=== PATIENT | male | born 1965 | race Caucasian/White ===

== ENCOUNTER 2021-10-04 07:52 | Outpatient (CLI) | payer OTHER, SELFPAY ==
--- NOTE | ~2021-10-04 | CT_ITS ---
EXAMINATION: CT abdomen pelvis wo/w con DATE: 10/04/2021 08:30 INDICATION: Gross hematuria. TECHNIQUE: Computed tomography (CT) of the abdomen and pelvis was performed without and with intraven ous contrast using a total of 130 mL Omnipaque-350 intravenous contrast with a double-bolus technique for simultaneous opacification of the renal parenchyma and renal collecting system. Automated exposu re control and iterative reconstruction technique were employed. The dose-length product was 860.81 m Gy-cm. COMPARISON: None FINDINGS: The visualized portions of the lung bases demonstrate mild atelectasis. A calcified right middle lobe nodule and calcified hilar and mediastinal lymph nodes are consistent with old granulomatous disease . No pleural effusion. The heart size is normal. There are coronary artery calcifications. No pericar dial effusion. There is mild bilateral gynecomastia. The liver, gallbladder, spleen, pancreas, adrena l glands, and kidneys are normal. There is no urolithiasis. The ureters are well opacified and are no rmal. The bladder is normal. The prostate is mildly enlarged. Stool distends the rectum. There are no dilated loops of bowel. The appendix is normal. There are no pathologically enlarged lymph nodes. Th ere is no free intraperitoneal fluid. There is moderate thoracolumbar spondylosis. There is a mild ch ronic height loss of multiple vertebral bodies. IMPRESSION: 1. No etiology for hematuria. Reviewed, dictated and finalized at location A.
[2021-10-04 08:16] LABS: Estimated Glomerular Filt Rate > 60
== END 2021-10-04 07:53 | disposition home or self-care (01) ==
PROVIDERS: Visit Provider Urology
DX: R31.0 Gross hematuria (principal); N62 Hypertrophy of breast; N40.0 Benign prostatic hyperplasia without lower urinary tract symptoms; M47.815 Spondylosis without myelopathy or radiculopathy, thoracolumbar region
CPT/HCPCS: 74178; Q9967

== ENCOUNTER 2021-10-11 00:14 | Day surgery (SDC) | payer OTHER, SELFPAY ==
[2021-10-04 08:57] VITALS: BMI 27.8
[2021-10-11 09:08] VITALS: BP 138/86; PULSE 87; RESP 18; TEMP 36.4; O2SAT 100; BMI 27.6
[2021-10-11] MEDS: LACTATED RINGERS 1,000 ML 150 ML IV CONT (09:32)
--- NOTE | 2021-10-11 09:40 | WPDANESEPPF ---
Anes - Initial Pre Proc Eval Procedure: Operation Date: 10/11/21 10:30 Proposed Procedures p Screening Colonoscopy - Petey Perez MD Date/Time: 10/11/21 09:40 Surgeon: Petey Perez MD Pre Op Diagnosis: neoplasm screening Patient Data Age: 55 Gender: M Height: 1.68 m Weight: 77.8 kg Last Vital Signs Temp 36.4 C 10/11/21 09:08 Pulse 87 10/11/21 09:08 Resp 18 10/11/21 09:08 BP 138/86 10/11/21 09:08 Pulse Ox 100 10/11/21 09:08 Allergies Allergy/AdvReac Type Severity Reaction Status Date / Time No Known Allergies Allergy Verified 10/11/21 09:15 Home Medications Medication Instructions Recorded Confirmed Type allopurinol [Zyloprim] 100 mg PO PRN 10/04/21 10/11/21 History amlodipine [Norvasc] 5 mg PO DAILY 10/04/21 10/11/21 History lisinopril [Zestril] 40 mg PO DAILY 10/04/21 10/11/21 History trazodone 50 mg PO HS 10/04/21 10/11/21 History zolpidem [Ambien] 10 mg PO HS 10/04/21 10/11/21 History Patient hx anesthesia problems: none Family hx anesthesia problems: none Results Review: All pre-operative results and documents have been reviewed as part of the pre-operative evaluation. [facility] Past Medical History Medical History Hx of migraines Hypertension Family History Family History Mother Carcinoma of colon Social History Social History Smoking status: Current every day smoker Tobacco type: smokeless tobacco Alcohol intake: current Drinks per week: 7 Substance use: unknown Substance use type: does not use Living arrangements: with family Spiritual care concerns: No Anes - Eval Final PreProcedure Day of Procedure 10/11/21 09:40 Patient weight: overweight Heart: regular rate and rhythm Lungs: clear to auscultation Airway: Mallampati scale class II Neurological: alert and oriented Last oral intake: >/= 8 hours ASA classification: II Emergent: no Anesthetic plan: proceed Anesthesia type and monitoring: general GIVS and standard monitoring Results Review: All pre-operative results and documents have been reviewed as part of the pre-operative evaluation. Informed Consent: The patient's anesthetic plan and its attendant risks and benefits were discussed with the patient/family/POA. Questions were solicited and answers provided to the satisfaction of the patient/family/POA.
--- NOTE | 2021-10-11 10:35 | PM.HPGS ---
History of Present Illness History of Present Illness Consent: Risks, benefits, and alternatives have been discussed and questions answered. Patient agrees to proceed with procedure. Chief complaint: neoplasm screening Narrative: Shadi Ellis is a 55 year old male here for colonoscopy, mother with colon cancer. He had a colonoscopy in 1991 because colitis Review of Systems Constitutional: Constitutional: Denies headache(s) and Denies weakness Eyes: Eyes: Denies blurry vision ENT: Reports Normal hearing present, Denies headache(s) and Denies neck pain Cardiovascular: Cardiovascular: Denies chest pain and Denies dyspnea Respiratory: Respiratory: Denies dyspnea Gastrointestinal: Gastrointestinal: Reports no additional gastrointestinal complaints Genitourinary: Genitourinary: Denies dysuria Musculoskeletal: Musculoskeletal: Denies neck pain Integumentary/Breasts: Skin/Breast: Denies dry skin Neurologic: Reports Normal hearing present, Denies headache(s) and Denies weakness Psychiatric: Psychiatric: Denies anxiety Endocrine: Endocrine: Denies change in body appearance Hematologic/Lymphatic: Hematologic/Lymphatic: Denies easy bleeding Allergic/Immunologic: Allergic/Immunologic: Denies urticaria [facility] Past Medical History Medical History (Updated 10/11/21 @ 10:36 by Petey Perez MD) Family history of colon cancer in mother Hx of migraines Hypertension Family History Family History Mother Carcinoma of colon Social History Social History Smoking status: Current every day smoker Tobacco type: smokeless tobacco Alcohol intake: current Drinks per week: 7 Substance use: unknown Substance use type: does not use Living arrangements: with family Spiritual care concerns: No Meds Home Medications and Allergies Home Medications Medication Instructions Recorded Confirmed Type allopurinol [Zyloprim] 100 mg PO PRN 10/04/21 10/11/21 History amlodipine [Norvasc] 5 mg PO DAILY 10/04/21 10/11/21 History lisinopril [Zestril] 40 mg PO DAILY 10/04/21 10/11/21 History trazodone 50 mg PO HS 10/04/21 10/11/21 History zolpidem [Ambien] 10 mg PO HS 10/04/21 10/11/21 History Allergies Allergy/AdvReac Type Severity Reaction Status Date / Time No Known Allergies Allergy Verified 10/11/21 09:15 Vital Signs Vital Signs - 24 hr 10/11/21 09:08 Temperature 97.6 F Pulse Rate 87 Respiratory Rate 18 Blood Pressure 138/86 Pulse Oximetry 100 Exam Const: General: comfortable and no acute distress HENMT: General nose exam: Normal nares present Eyes: General: appearance normal, both eyes and all related structures Neck: Neck: no JVD Resp: Auscultation: clear to auscultation bilaterally Cardio: Rate: regular rate Rhythm: regular rhythm GI: Inspection: non-distended GI Palp: Yes Soft to palpation Skin: General skin exam: normal color Neuro: General: gait normal Speech: normal speech Extrem: General: normal to inspection Psych: Mental Status: mental status grossly normal Assessment and Plan Assessment and plan (1) Family history of colon cancer in mother: Code(s): Z80.0 - Family history of malignant neoplasm of digestive organs Status: Acute Assessment and Plan: colonoscopy
[2021-10-11 11:06] VITALS: BP 107/75; PULSE 75; RESP 18; O2SAT 98
[2021-10-11 11:16] VITALS: BP 119/83; PULSE 70; RESP 21; O2SAT 100
[2021-10-11 11:26] VITALS: BP 116/82; PULSE 65; RESP 17; O2SAT 100
== END 2021-10-11 11:38 | disposition home or self-care (01) ==
PROVIDERS: PCP Family Medicine; Visit Provider Internal Medicine Gastroenterology
PROC: 0DJD8ZZ Inspection of Lower Intestinal Tract, Via Natural or Artificial Opening Endoscopic (ICD-10-PCS; CPT 45378; principal; 2021-10-11 10:30)
DX: Z12.11 Encounter for screening for malignant neoplasm of colon (principal); D12.0 Benign neoplasm of cecum; D12.3 Benign neoplasm of transverse colon; Z80.0 Family history of malignant neoplasm of digestive organs; K57.30 Diverticulosis of large intestine without perforation or abscess without bleeding; K64.8 Other hemorrhoids; I10 Essential (primary) hypertension; Z87.891 Personal history of nicotine dependence; Z87.19 Personal history of other diseases of the digestive system
CPT/HCPCS: 45385; 88305; J2704; J7120

== ENCOUNTER 2021-10-16 19:16 | Emergency (ER) | payer OTHER, SELFPAY ==
[2021-10-16] VITALS (14 sets, daily range): BP systolic 125–171; BP diastolic 74–90; PULSE 65–92; RESP 12–22; O2SAT 97–100
--- NOTE | ~2021-10-16 | XR_ITS ---
EXAMINATION: XR chest 2V EXAM DATE: 10/16/2021 20:23 INDICATION: Chest pain. TECHNIQUE: Frontal and lateral projections of the chest obtained and reviewed. There is no prior jose dy for comparison. FINDINGS: The lungs are clear. There are no pleural effusions. The cardiomediastinal silhouette is within normal limits. There is no pneumothorax suspected. The bones and soft tissues are unremarkab le. IMPRESSION: Normal chest x-ray exam. Reviewed, dictated and finalized at location G. IMPRESSION: Normal chest x-ray exam.
--- NOTE | 2021-10-16 19:22 | ECG_ITS ---
Measurements Intervals [place] Rate: 82 P: 32 WI: 156 QRS: -10 QRSD: 102 T: 29 QT: 361 QTc: 424 Interpretive Statements SINUS RHYTHM MINOR RV CONDUCTION ABNORMALITY OTHERWISE UNREMARKABLE ECG NO PREVIOUS ECG AVAILABLE FOR COMPARISON Electronically Signed On 10-16-2021 20:55:15 CDT by Dayton Bcuhanan M.D.
[2021-10-16 20:02] LABS: Basophils Percent Auto 0.7 % (0.2-1.2); Eosinophils Absolute Auto 0.2 K/mm3 (0-0.3); Eosinophils Percent Auto 3.6 % (0-4.4); Hemoglobin 15.7 g/dL (14.0-18.0); Immature Granulocyte Absolute 0.04 K/mm3 (0.00-0.031); Immature Granulocyte Percent A 0.7 % (0-0.5); Lymphocytes Absolute Auto 1.56 K/mm3 (0.9-3.2); Lymphocytes Percent Auto 25.6 % (18.3-44.2); Mean Corpuscular HGB Conc 34.9 g/dl (32-36); Mean Corpuscular Volume 85.9 fl (80-100); Mean Platelet Volume 10.4 fl (7.4-10.4); Monocytes Absolute Auto 0.5 K/mm3 (0.1-0.6); Monocytes Percent Auto 8.7 % (2.6-8.5); Neutrophils Absolute Auto 3.7 K/mm3 (1.3-6.7); Neutrophils Percent Auto 60.7 % (45.5-73.1); Platelet Count Result 211 k/mm3 (150-375); Red Blood Count 5.24 M/mm3 (4.6-6.20); Red Cell Distribution Width 13.1 % (11.5-14.5); White Blood Count 6.1 K/mm3 (4.5-10.0)
--- NOTE | 2021-10-16 20:03 | ED.GENADULT ---
HPI - General Adult General Chief complaint: Chest Pain Stated complaint: chest pain Time Seen by Provider: 10/16/21 19:56 History of Present Illness HPI narrative: Patient is a 55-year-old gentleman who presents the emergency department with chief complaint of chest discomfort and palpitations. The patient reports that for the last week he has had little bit of discomfort in the left side of his chest is been intermittent. Patient states currently the pain is gone but does report that his primary reason for coming the emergency department is because has been having palpitations. Patient states that every so often is a feels as though his heart skips a beat. Patient reports has not had a stress test done had a cardiac cath. The patient reports he does have history of hypertension and takes 2 antihypertensive medications. Related Data Home Medications Medication Instructions Recorded Confirmed allopurinol [Zyloprim] 100 mg PO PRN 10/04/21 10/11/21 amlodipine [Norvasc] 5 mg PO DAILY 10/04/21 10/11/21 lisinopril [Zestril] 40 mg PO DAILY 10/04/21 10/11/21 trazodone 50 mg PO HS 10/04/21 10/11/21 zolpidem [Ambien] 10 mg PO HS 10/04/21 10/11/21 Allergies Allergy/AdvReac Type Severity Reaction Status Date / Time No Known Allergies Allergy Verified 10/11/21 09:15 Review of Systems Review of Systems: A 10 system review of systems was completed on the patient and is negative except for what is stated in the HPI. Nursing and ancillary documentation was reviewed. PMFSH Past Medical History Medical History Family history of colon cancer in mother Hx of migraines Hypertension Family History Family History Mother Carcinoma of colon Social History Social History Smoking status: Current every day smoker Tobacco type: smokeless tobacco Alcohol intake: current Drinks per week: 7 Substance use: unknown Substance use type: does not use Spiritual care concerns: No Exam Narrative: GENERAL: Well-appearing, well-nourished, and in no acute distress. HEAD: Normocephalic, atraumatic. EYES: PERRLA and EOMI. ENT: Nares clear, no rhinorrhea or epistaxis. Mucous membranes moist. NECK: Supple. CHEST: Clear to auscultation. No respiratory distress. HEART: Regular rate and rhythm. No murmur heard. Normal peripheral pulses. ABDOMEN: Soft, nontender, nondistended, normal active bowel sounds. EXTREMITIES: Normal range of motion. No edema. SKIN: Warm, dry, no rash. NEURO: No focal deficits. Alert and oriented x3. PSYCH: Normal mood and affect. Course Course Emergency Course: EKG is sinus rhythm with a rate of [address] elevation or ST depression noted. Rhythm strip shows occasional PVCs Vital Signs Vital signs: Vital Signs Pulse Rate 87 10/16/21 19:27 Respiratory Rate 16 10/16/21 19:27 Blood Pressure 171/85 H 10/16/21 19:27 Pulse Oximetry 100 10/16/21 19:27 Pulse Rate 87 10/16/21 19:27 Respiratory Rate 16 10/16/21 19:27 Blood Pressure 171/85 H 10/16/21 19:27 Pulse Oximetry 100 10/16/21 19:27 Medical Decision Making MDM Narrative Medical decision making narrative: The patient's electrolytes are within normal limits. EKG shows no acute ischemic changes. The patient was observed to have occasional PVCs in the ER. Patient will be referred to his primary care physician for follow-up Vital Signs Vital Signs: Vital Signs Pulse Rate 87 10/16/21 19:27 Respiratory Rate 16 10/16/21 19:27 Blood Pressure 171/85 H 10/16/21 19:27 Pulse Oximetry 100 10/16/21 19:27 Pulse Rate 87 10/16/21 19:27 Respiratory Rate 16 10/16/21 19:27 Blood Pressure 171/85 H 10/16/21 19:27 Pulse Oximetry 100 10/16/21 19:27 Lab Data Result diagrams: 10/16/21 19:48 10/16/21 19:48
[2021-10-16] MEDS: ASPIRIN 81 MG CHEWABLE TABLET 324 MG PO (20:08)
[2021-10-16 20:12] LABS: Prothrombin Time 12.9 Seconds (11.1-14.7)
[2021-10-16 20:13] LABS: Partial Thromboplastin Time 28.2 SECONDS (22.3-36.8)
[2021-10-16 20:14] LABS: Alanine Aminotransferase 18 U/L (4-50); Albumin Level 4.7 g/dL (3.5-5.1); Alkaline Phosphatase 100 U/L (38-126); Anion Gap 9 mmol/L (8-16); Aspartate Amino Transferase 26 U/L (17-59); Bilirubin,Total 0.4 mg/dL (0.2-1.3); Blood Urea Nitrogen 14 mg/dL (9-20); Carbon Dioxide 29 mmol/L (22-30); Chloride 104 mmol/L (98-107); Estimated CRCL calculation 73 ml/min; Estimated Glomerular Filt Rate > 60; Glucose 134 mg/dL (65-110); Lipase 148 U/L (23-300); Potassium 4.1 mmol/L (3.4-5.0); Sodium 142 mmol/L (137-145)
[2021-10-16 20:15] LABS: Magnesium 2.1 mg/dL (1.6-2.3)
[2021-10-16 20:25] LABS: Troponin I < 0.012 ng/mL (0.000-0.034)
== END 2021-10-16 21:33 | disposition home or self-care (01) ==
LOC: ANHED 21:13
PROVIDERS: Emergency Provider Emergency Medicine; PCP Family Medicine
DX: I49.3 Ventricular premature depolarization (principal); R07.89 Other chest pain; I10 Essential (primary) hypertension; F17.220 Nicotine dependence, chewing tobacco, uncomplicated
CPT/HCPCS: 36415; 71046; 80053; 83690; 83735; 84484; 85025; 85610; 85730; 93005; 99284; A9270

== ENCOUNTER 2022-05-19 10:31 | Outpatient (CLI) | payer OTHER, SELFPAY ==
--- NOTE | ~2022-05-19 | US_ITS ---
EXAMINATION: US soft tissue head and neck DATE: 05/19/2022 11:07 INDICATION: Neck pain. TECHNIQUE: Multiple grayscale and Doppler ultrasound images of the neck were obtained. COMPARISON: None FINDINGS: The thyroid is normal. There is no abnormal mass or lymphadenopathy. IMPRESSION: 1. No abnormal mass or lymphadenopathy. Reviewed, dictated and finalized at location A.
== END 2022-05-19 10:32 | disposition home or self-care (01) ==
PROVIDERS: PCP Family Medicine; Visit Provider Nurse Practitioner Family
DX: R07.0 Pain in throat (principal)
CPT/HCPCS: 76536

== ENCOUNTER 2022-09-11 09:53 | Emergency (ER) | payer OTHER, SELFPAY ==
[2022-09-11] VITALS (17 sets, daily range): BP systolic 103–133; BP diastolic 74–90; PULSE 63–88; RESP 14–18; TEMP 36.4–36.8; O2SAT 95–100
--- NOTE | ~2022-09-11 | XR_ITS ---
EXAMINATION: XR chest 2V 09/11/2022 10:09 INDICATION: Left-sided chest and shoulder pain PROCEDURE: 2 views chest COMPARISON: 10/16/2021 FINDINGS: The lungs are clear. The cardiomediastinal silhouette is within normal limits. There are no pleural effusions. There is no pneumothorax suspected. IMPRESSION: 1: NO ACUTE CARDIOPULMONARY DISEASE. Reviewed, dictated and finalized at location B. [employer]ING [employer]
--- NOTE | 2022-09-11 09:55 | ECG_ITS ---
Measurements Intervals [place] Rate: 80 P: 44 FL: 168 QRS: -10 QRSD: 88 T: 29 QT: 350 QTc: 406 Interpretive Statements SINUS RHYTHM POSSIBLE RIGHT VENTRICULAR CONDUCTION DELAY [RSR (QR) IN V1/V2] OTHERWISE UNREMARKABLE ECG COMPARED TO ECG 10/16/2021 19:39:40 NO SIGNIFICANT CHANGES Electronically Signed On 09-11-2022 12:49:58 ESCALATOR ATTENDANT by Dayton Buchanan M.D.
[2022-09-11 10:45] LABS: Basophils Percent Auto 0.7 % (0.2-1.2); Eosinophils Absolute Auto 0.2 K/mm3 (0-0.3); Eosinophils Percent Auto 4.4 % (0-4.4); Hematocrit 45.7 % (42.0-52.0); Hemoglobin 15.8 g/dL (14.0-18.0); Immature Granulocyte Absolute 0.01 K/mm3 (0.00-0.031); Immature Granulocyte Percent A 0.2 % (0-0.5); Lymphocytes Absolute Auto 1.15 K/mm3 (0.9-3.2); Lymphocytes Percent Auto 21.1 % (18.3-44.2); Mean Corpuscular HGB Conc 34.6 g/dl (32-36); Mean Corpuscular Hemoglobin 29.3 pg (26-34); Mean Corpuscular Volume 84.8 fl (80-100); Mean Platelet Volume 9.8 fl (7.4-10.4); Monocytes Absolute Auto 0.5 K/mm3 (0.1-0.6); Monocytes Percent Auto 8.3 % (2.6-8.5); Neutrophils Absolute Auto 3.6 K/mm3 (1.3-6.7); Neutrophils Percent Auto 65.3 % (45.5-73.1); Platelet Count Result 189 k/mm3 (150-375); Red Blood Count 5.39 M/mm3 (4.6-6.20); Red Cell Distribution Width 12.8 % (11.5-14.5); White Blood Count 5.4 K/mm3 (4.5-10.0)
[2022-09-11 10:56] LABS: Alanine Aminotransferase 22 U/L (6-50); Albumin Level 4.7 g/dL (3.5-5.1); Alkaline Phosphatase 95 U/L (38-126); Anion Gap 6 mmol/L (8-16); Aspartate Amino Transferase 23 U/L (17-59); Bilirubin,Total 0.7 mg/dL (0.2-1.3); Blood Urea Nitrogen 13 mg/dL (9-20); Calcium 8.8 mg/dL (8.4-10.2); Carbon Dioxide 27 mmol/L (22-30); Chloride 103 mmol/L (98-107); Estimated CRCL calculation 66 ml/min; Estimated Glomerular Filt Rate > 60; Glucose 127 mg/dL (65-110); Lipase 130 U/L (23-300); Partial Thromboplastin Time 29.9 SECONDS (22.3-36.8); Potassium 4.2 mmol/L (3.4-5.0); Sodium 136 mmol/L (137-145)
[2022-09-11 11:08] LABS: Troponin I < 0.012 ng/mL (0.000-0.034)
[2022-09-11 15:26] LABS: Troponin I < 0.012 ng/mL (0.000-0.034)
[2022-09-11 17:44] LABS: Troponin I < 0.012 ng/mL (0.000-0.034)
--- NOTE | 2022-09-11 17:45 | ED.CHESTPAIN ---
HPI - Chest Pain General Chief Complaint: Chest Pain Stated Complaint: left chest pain and shoulder pain Time Seen by Provider: 09/11/22 16:11 History of Present Illness HPI narrative: Patient is a healthy 56-year-old male who presents ER with left-sided chest pain. Aching and in the upper part of his chest near the clavicle. He has begun to migrate and cause pain in his mid left back and left lateral chest wall. Reports its worse with movements and sometimes with exertion. No runny nose or sore throat or productive cough. No dyspnea with exertion. No diaphoresis. He also reports he started having some aching in his lower extremities with some chronic edema that is improved with compression socks. He has not contacted his PCP. Reports current chills. Left-sided constant over the last couple days. He has tried anti-inflammatories which intermittently helped. No history of heart disease. It appiah been many years since his last stress test. Related Data Home Medications Medication Instructions Recorded Confirmed allopurinol 100 mg tablet 100 mg PO PRN 10/04/21 10/11/21 (Zyloprim) amlodipine 5 mg tablet (Norvasc) 5 mg PO DAILY 10/04/21 10/11/21 lisinopril 40 mg tablet (Zestril) 40 mg PO DAILY 10/04/21 10/11/21 trazodone 50 mg tablet 50 mg PO HS 10/04/21 10/11/21 zolpidem 10 mg tablet (Ambien) 10 mg PO HS 10/04/21 10/11/21 Allergies Allergy/AdvReac Type Severity Reaction Status Date / Time No Known Allergies Allergy Verified 09/11/22 15:02 Review of Systems Review of Systems: All systems reviewed & are unremarkable except as noted in HPI and below Constitutional: Constitutional: Denies chills, Denies fatigue and Denies fever(s) ENT: Denies nasal congestion and Denies sore throat Cardiovascular: Cardiovascular: Reports chest pain, Denies rapid heart rate and Denies radiating jaw, neck or arm pain Respiratory: Respiratory: Denies cough and Denies dyspnea Gastrointestinal: Gastrointestinal: Denies abdominal pain, Denies nausea and Denies vomiting Musculoskeletal: Musculoskeletal: Denies myalgias, Denies arthralgias and Denies joint swelling PMFSH Past Medical History Medical History Family history of colon cancer in mother Hx of migraines Hypertension Family History Family History Mother Carcinoma of colon Social History Social History Smoking status: Current every day smoker Tobacco type: smokeless tobacco Alcohol intake: current Drinks per week: 7 Substance use: unknown Substance use type: does not use Living arrangements: with family Spiritual care concerns: No Exam Narrative: GENERAL: Well-appearing, well-nourished, and in no acute distress. HEAD: Normocephalic, atraumatic. ENT: Mucous membranes moist. CHEST: Clear to auscultation. No respiratory distress. HEART: Regular rate and rhythm. Normal peripheral pulses. ABDOMEN: Soft, nontender, nondistende. EXTREMITIES: Normal range of motion. 1+ edema. Negative Homans' sign. Normal dorsalis pedis and posterior tibial pulses bilateral lower extremities. SKIN: Warm, dry, no rash. Eczema left ang. NEURO: Alert and oriented x3. PSYCH: Normal mood and affect. Course Course Emergency Course: Patient resting comfortably. Chest pain is very atypical. Heart score is 3 patient is amenable discharge with close follow-up with his PCP. Discussed return precautions and patient verbalized understanding. Vital Signs Vital signs: Vital Signs Temperature 98.2 F 09/11/22 10:32 Pulse Rate 88 09/11/22 10:32 Respiratory Rate 14 09/11/22 10:32 Blood Pressure 125/86 09/11/22 10:32 Pulse Oximetry 98 09/11/22 10:32 Temperature 97.5 F L 09/11/22 14:52 Pulse Rate 81 09/11/22 18:14 Respiratory Rate 18 09/11/22 18:14 Blood Pressure
== END 2022-09-11 18:19 | disposition home or self-care (01) ==
PROVIDERS: Emergency Provider Emergency Medicine; PCP Family Medicine
DX: R94.31 Abnormal electrocardiogram [ECG] [EKG] (principal); F17.220 Nicotine dependence, chewing tobacco, uncomplicated
CPT/HCPCS: 36415; 71046; 80053; 83690; 84484; 85025; 85610; 85730; 93005; 99284

== ENCOUNTER → 2022-10-24 16:57 | Outpatient (CLI) | payer OTHER, SELFPAY ==
--- NOTE | ~2022-10-24 | XR_ITS ---
EXAMINATION: XR lumbar spine 2-3V DATE: 10/24/2022 17:34 INDICATION: Low back pain TECHNIQUE: Anteroposterior and lateral views of the lumbar spine, and cone-down lateral view of the l umbosacral junction were obtained. COMPARISON: None. FINDINGS: There is moderate loss of intervertebral disc space height at L4-5 and L5-S1. There are 3 m m of retrolisthesis of L4 on L5. The lumbar vertebral body heights are normal. There is mild anterior vertebral body wedging in the lower thoracic spine, likely physiologic. There is multilevel mild fac et joint osteoarthritis of the lumbar spine. Small degenerative osteophytes project from the anterior endplates of multiple vertebral bodies. A large volume of colonic stool is present. IMPRESSION: 1. Mild to moderate lumbar spondylosis without acute findings. Reviewed, dictated and finalized at location B.
== END ==
PROVIDERS: PCP Nurse Practitioner Family; Visit Provider Nurse Practitioner Family
DX: M47.816 Spondylosis without myelopathy or radiculopathy, lumbar region (principal); M54.41 Lumbago with sciatica, right side
CPT/HCPCS: 72100

== ENCOUNTER 2025-01-05 16:14 | Outpatient (CLI) | payer OTHER, SELFPAY ==
--- NOTE | ~2025-01-05 | XR_ITS ---
EXAMINATION: XR elbow RT min 3V, XR wrist RT min 3V, XR forearm RT 2V DATE: 01/05/2025 16:34 INDICATION: Right wrist pain TECHNIQUE: 1. Anteroposterior, two oblique and lateral views of the right elbow were obtained. 2. Anteroposterior and lateral views of the right forearm were obtained. 3. Dorsal palmar, lateral, oblique and ulnar deviation views of the right wrist were obtained. COMPARISON: None. FINDINGS: Alignment is normal from the right elbow through the wrist and visualized hand. No acute fracture. Ol d healed intra-articular fracture at the right radial head with mild incongruity of the articular cor teodoro of the radial head. There is moderate secondary osteoarthritis at the radiocapitellar articulatio n and mild osteoarthritis at the proximal radioulnar and ulnotrochlear articulations of the above. No elbow joint effusion. Additional mild polyarticular osteoarthritis at the right wrist, radial aspect of the carpus and first interphalangeal joint. Soft tissues are unremarkable. IMPRESSION: 1. No acute osseous abnormality at the right elbow, forearm, wrist or visualized hand. 2. Old healed intra-articular fracture at the right radial head with moderate secondary osteoarthriti s at the radiocapitellar articulation of the elbow. 2. Mild polyarticular osteoarthritis at the right hand and wrist. Reviewed, dictated and finalized at location B. IMPRESSION: 1. No acute osseous abnormality at the right elbow, forearm, wrist or visualize d hand. 2. Old healed intra-articular fracture at the right radial head with moderate s econdary osteoarthritis at the radiocapitellar articulation of the elbow. 2. Mild polyarticular osteoarthritis at the right hand and wrist. IMPRESSION: 1. No acute osseous abnormality at the right elbow, forearm, wrist or visualize d hand. 2. Old healed intra-articular fracture at the right radial head with moderate s econdary osteoarthritis at the radiocapitellar articulation of the elbow. 2. Mild polyarticular osteoarthritis at the right hand and wrist.
== END 2025-01-05 16:15 | disposition home or self-care (01) ==
LOC: MICIMG 16:17
PROVIDERS: PCP Emergency Medicine; Visit Provider Emergency Medicine
DX: M19.041 Primary osteoarthritis, right hand (principal); M19.031 Primary osteoarthritis, right wrist
CPT/HCPCS: 73080; 73090; 73110